=== PATIENT | female | born 1975 | race American Indian/Alaskan Native ===

== ENCOUNTER 2022-01-07 09:33 | Emergency (ER) | payer BC, MEDICAID ==
[2022-01-07] MEDS ORDERED: Sodium Chloride 0.9% 10 ML Syringe FLUSH PRN (10:08)
[2022-01-07 10:54] LABS: ANION GAP 12.9 mEq/L (7-13); CHLORIDE,CL 102 mmol/L (98-107); SODIUM,NA 137 mmol/L (136-145)
[2022-01-07 10:55] LABS: ESTIMATED GFR 53 mL/min (>=60)
== END 2022-01-07 11:43 | disposition home or self-care (01) ==
LOC: DL.ED 09:33
DX: R07.89 Other chest pain (principal); M25.512 Pain in left shoulder; I10 Essential (primary) hypertension; E78.5 Hyperlipidemia, unspecified; Z88.5 Allergy status to narcotic agent; Z79.899 Other long term (current) drug therapy
CPT/HCPCS: 36415; 71045; 80053; 81003; 82150; 83690; 83735; 83880; 84443; 84484; 85025; 86140; 93005; 99284; J3490

== ENCOUNTER 2022-04-26 15:54 | Emergency (ER) | payer BC, MEDICAID ==
[2022-04-26] MEDS ORDERED: traMADol 50 MG Tab PO ONE ×2 (15:55→19:38)
[2022-04-26] MEDS ORDERED: Sodium Chloride 0.9% 10 ML Syringe FLUSH PRN (16:16)
[2022-04-26] MEDS ORDERED: Iopamidol 612 MG/ML 100 ML Bottle IVPUSH ONE (16:35)
[2022-04-26] MEDS ORDERED: fentaNYL 100 MCG/2 ML SDV IVPUSH ONE ×3 (16:53→18:16)
[2022-04-26 17:06] LABS: ANION GAP 14.2 mEq/L (7-13); CHLORIDE,CL 100 mmol/L (98-107); SODIUM,NA 137 mmol/L (136-145)
[2022-04-26 17:07] LABS: ESTIMATED GFR 59 mL/min (>=60)
[2022-04-26 17:10] LABS: PTT,PARTIAL THROMBOPLSTIN TIME 27.6 SEC (22.0-34.0)
[2022-04-26] MEDS ORDERED: Lidocaine/EPINEPHrine/Tetracaine Soln 5 ML Each TOP ONE (18:10)
[2022-04-26] MEDS ORDERED: Midazolam 1 MG/ML 2 ML SDV IVPUSH ONE (18:16)
[2022-04-26] MEDS ORDERED: Amoxicillin/Clavulanate K 875-125 MG Tab PO ONE (18:44)
[2022-04-26] MEDS ORDERED: Sodium Chloride 0.9% 500 ML IV SCH (18:45)
[2022-04-26] MEDS ORDERED: traMADol 50 MG Tab ONE (18:52)
== END 2022-04-26 19:51 | disposition home or self-care (01) ==
LOC: DL.ED 15:54
DX: K61.0 Anal abscess (principal); I10 Essential (primary) hypertension; E03.9 Hypothyroidism, unspecified; Z86.16 Personal history of COVID-19; Z88.5 Allergy status to narcotic agent; Z72.0 Tobacco use; Z79.899 Other long term (current) drug therapy
CPT/HCPCS: 10061; 36415; 46050; 72193; 80053; 83605; 84145; 85025; 85610; 85730; 86140; 87040; 87070; 87205; 96374; 96375; 96376; 99283; 99284; A9270; J2250; J3010; J3490; J7040; Q9967

== ENCOUNTER 2023-11-18 06:54 | Emergency (ER) | payer BC ==
[2023-11-18] MEDS: Iopamidol 612 MG/ML 100 ML Bottle IVPUSH ONE (07:23)
[2023-11-18] MEDS: Ondansetron 4 MG/2 ML SDV IVPUSH ONE (07:33)
[2023-11-18] MEDS: Sodium Chloride 0.9% 1,000 ML IV ONE (07:33)
[2023-11-18] MEDS: Morphine 4 MG/ML Syringe IVPUSH ONE (07:33)
[2023-11-18 07:35] LABS: BASOPHILS PERCENT AUTO 0.2 % (0.0-1.0); EOSINOPHILS PERCENT AUTO 1.7 % (1.0-3.0); HEMATOCRIT 43.5 % (37.0-47.0); LYMPHOCYTES PERCENT AUTO 24.7 % (20.5-50.1); MEAN CORPUSCULAR HEMOGLOBIN 28.6 pg (27.0-34.0); MEAN CORPUSCULAR HGB CONC 32.2 g/dL (33.0-35.0); MEAN CORPUSCULAR VOLUME 88.8 fL (80-100); MONOCYTES PERCENT AUTO 9.4 % (2-8); PLATELET COUNT,PLT 319 10^3/uL (150-450); WHITE BLOOD CELL COUNT,WBC 8.3 10^3/uL (5.0-10.0)
[2023-11-18 07:36] LABS: APPEARANCE,URINE CLEAR (CLEAR); BILIRUBIN,URINE NEGATIVE (NEGATIVE); COLOR,URINE YELLOW (YELLOW); GLUCOSE,URINE NEGATIVE (NEGATIVE); KETONES,URINE NEGATIVE (NEGATIVE); LEUKOCYTE ESTERASE,URINE NEGATIVE (NEGATIVE); NITRITE,URINE NEGATIVE (NEGATIVE); OCCULT BLOOD,URINE NEGATIVE (NEGATIVE); PROTEIN,URINE NEGATIVE (NEGATIVE); UROBILINOGEN,URINE 0.2 mg/dL (0.2-1.0)
[2023-11-18 07:53] LABS: A/G RATIO 0.9; ALBUMIN 3.6 g/dL (3.4-5.0); ANION GAP 14.8 mEq/L (7-13); BILIRUBIN TOTAL 0.5 mg/dL (0.2-1.0); BUN/CREATININE RATIO 13.2 (No establ ref range); CALCIUM 9.2 mg/dL (8.5-10.1); CREATININE 1.14 mg/dL (0.55-1.02); EST CRCL DRUG DOSING (CG) 54.3 mL/min; MAGNESIUM 1.9 mg/dL (1.8-2.4); POTASSIUM,K 3.8 mmol/L (3.5-5.1); PROTEIN TOTAL,TP 7.4 g/dL (6.4-8.2)
[2023-11-18 07:57] LABS: LACTIC ACID 1.5 mmol/L (0.4-2.0)
[2023-11-18] MEDS: HYDROmorphone 0.5 MG/0.5 ML Syringe IVPUSH ONE (09:14)
== END 2023-11-18 09:50 | disposition home or self-care (01) ==
LOC: DL.ED 06:54
DX: K82.8 Other specified diseases of gallbladder (principal); I10 Essential (primary) hypertension; E03.9 Hypothyroidism, unspecified; E66.9 Obesity, unspecified; F17.210 Nicotine dependence, cigarettes, uncomplicated; Z86.16 Personal history of COVID-19; Z79.890 Hormone replacement therapy; Z79.899 Other long term (current) drug therapy; Z88.5 Allergy status to narcotic agent; Z68.42 Body mass index [BMI] 45.0-49.9, adult; D13.5 Benign neoplasm of extrahepatic bile ducts
CPT/HCPCS: 36415; 74177; 80053; 81003; 83605; 83690; 83735; 85025; 96361; 96374; 96375; 99284; J1171; J2270; J2405; J7030; Q9967

== ENCOUNTER 2023-12-05 10:57 | Emergency (ER) | payer BC ==
[2023-12-05 11:46] LABS: HEMATOCRIT 44.6 % (37.0-47.0); HEMOGLOBIN 14.2 g/dL (12.0-16.0); MEAN CORPUSCULAR HEMOGLOBIN 28.6 pg (27.0-34.0); MEAN CORPUSCULAR HGB CONC 31.8 g/dL (33.0-35.0); MEAN CORPUSCULAR VOLUME 89.7 fL (80-100); PLATELET COUNT,PLT 320 10^3/uL (150-450); RED BLOOD CELL COUNT 4.97 10^6/uL (4.2-5.4); WHITE BLOOD CELL COUNT,WBC 14.5 10^3/uL (5.0-10.0)
[2023-12-05 11:48] LABS: APPEARANCE,URINE CLEAR (CLEAR); BILIRUBIN,URINE NEGATIVE (NEGATIVE); COLOR,URINE YELLOW (YELLOW); GLUCOSE,URINE NEGATIVE (NEGATIVE); KETONES,URINE NEGATIVE (NEGATIVE); LEUKOCYTE ESTERASE,URINE NEGATIVE (NEGATIVE); NITRITE,URINE NEGATIVE (NEGATIVE); OCCULT BLOOD,URINE NEGATIVE (NEGATIVE); PROTEIN,URINE 30 (NEGATIVE)
[2023-12-05 11:48] LABS: BASOPHILS PERCENT AUTO 0.1 % (0.0-1.0); EOSINOPHILS PERCENT AUTO 0.6 % (1.0-3.0); LYMPHOCYTES PERCENT AUTO 29.6 % (20.5-50.1); NEUTROPHILS PERCENT AUTO 62.7 % (42.2-75.2)
[2023-12-05 11:49] LABS: AMPHETAMINES,URINE NEGATIVE (NEGATIVE); BARBITURATES,URINE NEGATIVE (NEGATIVE); BENZODIAZEPINE,URINE NEGATIVE (NEGATIVE); MDMA (ECSTASY), URINE NEGATIVE (NEGATIVE); METHADONE,URINE NEGATIVE (NEGATIVE); METHAMPHETAMINES,URINE NEGATIVE (NEGATIVE); OPIATES,URINE NEGATIVE (NEGATIVE); OXYCODONE,URINE POSITIVE (NEGATIVE); PHENCYCLIDINE,URINE NEGATIVE (NEGATIVE); TCA,URINE POSITIVE (NEGATIVE)
[2023-12-05 11:58] LABS: LYMPHOCYTES PERCENT MAN 33 % (20-50); MONOCYTES PERCENT MAN 6 % (2-8); SEG NEUTROPHILS PERCENT MAN 61 % (42-75)
[2023-12-05 12:01] LABS: BACTERIA,URINE FEW /HPF (0-FEW/HPF); EPITHELIAL CELLS,URINE MODERATE /HPF (NOT SEEN); MUCUS,URINE FEW /LPF (NOT SEEN); RBC,URINE 0-5 /HPF (0-5); WBC,URINE 0-5 /HPF (0-5/HPF)
[2023-12-05 12:05] LABS: ALBUMIN 3.5 g/dL (3.4-5.0); ANION GAP 11.3 mEq/L (7-13); BILIRUBIN TOTAL 0.5 mg/dL (0.2-1.0); BUN/CREATININE RATIO 14.2 (No establ ref range); C-REACTIVE PROTEIN 0.8 ng/dL (<=0.50); CREATININE 1.13 mg/dL (0.55-1.02); EST CRCL DRUG DOSING (CG) 54.79 mL/min; POTASSIUM,K 3.3 mmol/L (3.5-5.1); PROTEIN TOTAL,TP 7.1 g/dL (6.4-8.2)
[2023-12-05 12:10] LABS: LACTIC ACID 0.7 mmol/L (0.4-2.0)
[2023-12-05] MEDS ORDERED: Naloxone 2 MG/2 ML Syringe IVPUSH PRN (12:20)
[2023-12-05] MEDS: Ondansetron 4 MG/2 ML SDV IVPUSH ONE (12:28)
[2023-12-05] MEDS: HYDROmorphone 1 MG/ML Syringe IVPUSH ONE (12:28)
[2023-12-05] MEDS: Iopamidol 612 MG/ML 100 ML Bottle IVPUSH ONE (13:25)
== END 2023-12-05 15:40 | disposition home or self-care (01) ==
LOC: DL.ED 10:57
DX: E86.0 Dehydration (principal); K58.1 Irritable bowel syndrome with constipation; K29.50 Unspecified chronic gastritis without bleeding; I10 Essential (primary) hypertension; E03.9 Hypothyroidism, unspecified; E66.9 Obesity, unspecified; Z68.42 Body mass index [BMI] 45.0-49.9, adult; Z86.16 Personal history of COVID-19; F17.210 Nicotine dependence, cigarettes, uncomplicated; Z79.899 Other long term (current) drug therapy; Z88.8 Allergy status to other drugs, medicaments and biological substances
CPT/HCPCS: 36415; 74019; 74177; 80053; 80305; 81001; 83605; 84484; 85025; 86140; 96374; 96375; 99284; J1171; J2405; Q9967

== ENCOUNTER 2024-08-03 05:11 | Day surgery (SDC) | payer BC, OTHER ==
[2024-08-03] MEDS ORDERED: Propofol 200 MG/20 ML SDV IV ONE (05:12)
[2024-08-03] MEDS ORDERED: Dextrose 5%-0.45% NaCl 1,000 ML IV ONE (05:12)
[2024-08-03] MEDS ORDERED: Lactated Ringers 500 ML IV ONE (05:12)
[2024-08-03] MEDS ORDERED: Lidocaine 2% 20 ML MDV NERVRT ONE (05:12)
[2024-08-03] MEDS ORDERED: Dextrose 5%-0.45% NaCl 1,000 ML IV SCH (05:30)
[2024-08-03] MEDS: Lactated Ringers 1,000 ML IV SCH (05:45)
[2024-08-03] MEDS ORDERED: Propofol 200 MG/20 ML SDV ONE (06:04)
[2024-08-03] MEDS ORDERED: Lidocaine 2% 20 ML MDV ONE (06:05)
== END 2024-08-03 07:54 | disposition home or self-care (01) ==
LOC: DL.ENDO 05:11
PROVIDERS: ATTEND Internal Medicine Gastroenterology
DX: K29.50 Unspecified chronic gastritis without bleeding (principal); B96.81 Helicobacter pylori [H. pylori] as the cause of diseases classified elsewhere; K21.9 Gastro-esophageal reflux disease without esophagitis; I12.9 Hypertensive chronic kidney disease with stage 1 through stage 4 chronic kidney disease, or unspecified chronic kidney disease; N18.31 Chronic kidney disease, stage 3a; R73.03 Prediabetes; F17.210 Nicotine dependence, cigarettes, uncomplicated; Z79.899 Other long term (current) drug therapy
CPT/HCPCS: 43239; J2003; J2704; J7120; S5010; 00731

== ENCOUNTER 2024-08-04 07:07 | Day surgery (SDC) | payer BC, OTHER ==
[2024-08-04] MEDS ORDERED: Dextrose 5%-0.45% NaCl 1,000 ML IV SCH (07:30)
[2024-08-04] MEDS: Lactated Ringers 1,000 ML IV SCH (07:41)
[2024-08-04] MEDS ORDERED: Propofol 200 MG/20 ML SDV ONE ×2 (08:03→08:24)
== END 2024-08-04 09:35 | disposition home or self-care (01) ==
LOC: DL.ENDO 07:07
PROVIDERS: ATTEND Internal Medicine Gastroenterology
DX: Z12.11 Encounter for screening for malignant neoplasm of colon (principal)
CPT/HCPCS: 45378; J7120

== ENCOUNTER 2024-12-04 13:49 | Emergency (ER) | payer BC, OTHER ==
[2024-12-04] MEDS ORDERED: Sodium Chloride 0.9% 10 ML Syringe FLUSH PRN (14:04)
[2024-12-04 14:10] LABS: BASOPHILS PERCENT AUTO 0.3 % (0.0-1.0); EOSINOPHILS PERCENT AUTO 1.5 % (1.0-3.0); LYMPHOCYTES PERCENT AUTO 31.8 % (20.5-50.1); MONOCYTES PERCENT AUTO 8.7 % (2-8); NEUTROPHILS PERCENT AUTO 57.7 % (42.2-75.2); PLATELET COUNT,PLT 342 10^3/uL (150-450); RED BLOOD CELL COUNT 5.09 10^6/uL (4.2-5.4); WHITE BLOOD CELL COUNT,WBC 10.0 10^3/uL (5.0-10.0)
[2024-12-04] MEDS: Ondansetron 4 MG/2 ML SDV IVPUSH ONE (14:14)
[2024-12-04 14:15] LABS: APPEARANCE,URINE CLEAR (CLEAR); GLUCOSE,URINE NEGATIVE (NEGATIVE); OCCULT BLOOD,URINE NEGATIVE (NEGATIVE)
[2024-12-04 14:26] LABS: A/G RATIO 1.0; ALANINE AMINOTRANSFERASE,ALT 59.0 U/L (14-59); ASPARTATE AMNIOTRANSFERASE,AST 39.0 U/L (15-37); BILIRUBIN TOTAL 0.4 mg/dL (0.2-1.0); BLOOD UREA NITROGEN,BUN 16.0 mg/dL (7-18); CARBON DIOXIDE,CO2 25.0 mmol/L (21-32); CHLORIDE,CL 100.0 mmol/L (98-107); CREATININE 1.16 mg/dL (0.55-1.02); EST CRCL DRUG DOSING (CG) 52.79 mL/min; ESTIMATED GFR 58.0 mL/min (>=60); GLUCOSE RANDOM 103.0 mg/dL (70-99); POTASSIUM,K 3.9 mmol/L (3.5-5.1); PROTEIN TOTAL,TP 7.8 g/dL (6.4-8.2); SODIUM,NA 138.0 mmol/L (136-145)
[2024-12-04 14:37] LABS: INR 0.9 (0.9-1.2)
[2024-12-04 14:45] LABS: T4 FREE 0.89 ng/dL (0.76-1.46); TSH ULTRASENSITIVE 4.87 uIU/mL (0.36-3.74)
== END 2024-12-04 15:11 | disposition home or self-care (01) ==
LOC: DL.ED 13:49
DX: M62.830 Muscle spasm of back (principal); I12.9 Hypertensive chronic kidney disease with stage 1 through stage 4 chronic kidney disease, or unspecified chronic kidney disease; N18.9 Chronic kidney disease, unspecified; E03.9 Hypothyroidism, unspecified; E78.00 Pure hypercholesterolemia, unspecified; K21.9 Gastro-esophageal reflux disease without esophagitis; F17.210 Nicotine dependence, cigarettes, uncomplicated; Z79.890 Hormone replacement therapy; Z79.899 Other long term (current) drug therapy; Z86.16 Personal history of COVID-19
CPT/HCPCS: 36415; 80053; 81003; 81025; 83735; 84439; 84443; 84484; 85025; 85610; 86140; 93005; 93010; 96374; 99283; 99285-25; J2405; J7030